=== PATIENT | male | born 1930 | race Caucasian/White ===

== ENCOUNTER 2017-04-06 18:11 | Inpatient (IN) | payer MEDICARE ==
[2017-04-06] MEDS ORDERED: Calcium Carbonate 500 MG ChewTAB PO PRN (19:54)
[2017-04-06] MEDS ORDERED: Ondansetron ODT 4 MG TAB PO PRN (19:54)
[2017-04-06] MEDS ORDERED: Loperamide HCl 2 MG CAP PO PRN (19:54)
[2017-04-06] MEDS ORDERED: PROVENTIL INHALER 6.7 G (200 INHALATIONS) INH PRN ×2 (20:49→21:32)
[2017-04-06] MEDS ORDERED: Refresh Lacri-lube Opth Oint 7 GM TUBE EA EYE PRN (20:49)
[2017-04-06] MEDS ORDERED: Fluticasone Propionate Nasal Spray 16 gm Bottle NASAL PRN (20:49)
[2017-04-06] MEDS ORDERED: Polyethylene Glycol 3350 17 GM Packet PO PRN (20:49)
[2017-04-06] MEDS: Carvedilol 6.25 MG TAB PO SCH (22:35)
[2017-04-06] MEDS: Donepezil HCl 10 MG TAB PO SCH (22:35)
[2017-04-06] MEDS: FLUOROMETHOLONE R EYE SCH (22:36)
[2017-04-06] MEDS: Latanoprost 0.005% Ophth Soln 2.5 ml Bottle L EYE SCH (22:36)
[2017-04-06] MEDS: Melatonin 3 MG TAB PO SCH (22:36)
[2017-04-06] MEDS: Vancomycin HCl 125 MG Capsule PO SCH (22:37)
[2017-04-07 00:20] LABS: Bilirubin Negative (Negative); Blood, Urine Large (Negative); Clarity Clear (Clear); Glucose, Urine (Dipstick) Negative (Negative); Leukocyte Trace (Negative); Nitrite Negative (Negative); Protein, Urine (Dipstick) 100 mg/dL (Neg-Trace); Specific Gravity, Urine 1.025 (1.005-1.030); Urobilinogen 0.2 mg/dL (0.2-1.0); pH, Urine 5.5 (5.0-9.0)
[2017-04-07 00:21] LABS: Bacteria/HPF Rare-Few HPF (None Seen); RBC/HPF 21-50 HPF (0-3); Squamous Epithelial 0-3 HPF (0-3)
--- NOTE | 2017-04-07 02:26 | HP ---
DATE OF ADMISSION: 04/06/2017 HISTORY OF PRESENT ILLNESS: Mr. Rivero is a very pleasant 87-year-old white male transferred from [facility] in [place] with multiple medical problems. He initially was admitted there with systolic heart failure, stage 4 kidney disease, and respiratory illness. He was negative for influenza, but had RSV. Unfortunately, he was found to have sudden asp iration was changed to chopped diet with nectar thickened liquids. Requires continued physical thera py. After 3 admissions in the past 3 months with pneumonia, he developed C. diff and was placed on v ancomycin 250 q.i.d., next 12 more days. At times, he is confused, but this evening, he is awake and alert and recognizes. He knows that he is at [facility] and he is here for physical therapy, occupational therapy, speech therapy, and to continue his C. diff treatment. PAST MEDICAL HISTORY: 1. Significant for multiple medical problems including systolic and diastolic heart failure. 2. Stage 4 kidney disease with creatinine in the force. 3. Atherosclerotic heart disease. 4. Chronic obstructive pulmonary disease. 5. BPH. 6. Coronary artery disease. 7. 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 8. Chronic combined systolic and diastolic heart failure. 9. Chronic respiratory failure with hypoxemia and oxygen at home. 10. Recent health care associated pneumonia. 11. RSV. 12. Hypertension 13. Restless leg syndrome. 14. Gastroesophageal reflux disease. 15. Hyperlipidemia. 16. Dysphagia. 17. Thrombocytopenia. 18. Chronic gout. 19. Prior coronary artery stent. 20. Tricuspid regurgitation. 21. Mitral regurgitation. 22. Aortic regurgitation. 23. Pulmonary valve regurgitation. 24. Left atrial enlargement. 25. Alzheimer's type dementia. 26. Bronchiectasis. 27. Metabolic encephalopathy. 28. Diverticulosis of the colon. 29. Periodic limb movement. 30. Erectile dysfunction. 31. Testicular hypofuntion. 32. Osteoarthritis. 33. History of peptic ulcer disease. 34. Former cigarette smoker. 35. Seborrheic dermatitis. 36. Rosacea. 37. Vitamin D deficiency. 38. Left bundle branch block. 39. Allergic rhinitis. 40. Generalized weakness. PAST SURGICAL HISTORY: Reveals: 1. Appendectomy. 2. Cholecystectomy. 3. Cardiac catheterization with stent. 4. Right hip replacement. 5. Right knee replacement. 6. Right shoulder replacement. 7. Hemorrhoidectomy. 8. Bilateral cataract surgery. 9. Partial distal claviculectomy. 10. Corneal transplant. FAMILY HISTORY: Reveals patient's father had coronary artery disease and hypertension. Patient had a brother and sister both with diabetes. Patient had a sister that of lung cancer at age 62. F amily history is positive for heart disease, hypertension, diabetes, and cancer. SOCIAL HISTORY: Reveals patient is . Patient stopped smoking in 1972. He states he smoked f or 38 years, 2 packs per day. Patient states he rarely has any alcohol or all, but is in the past elizondo d a glass of wine or a drink rarely. Patient is unable to exercise at this time. The patient is ret ired. REVIEW OF SYSTEMS: Reveal the patient, events of fatigue and malaise. Denies any fever, chills, or night sweats. He denies any pain at this time. His states he has decreased appetite. It is no phil that he has complaints of dry skin in the past. He states his vision is fair. He denies shortne ss of breath at this time, but he is lying in bed. Denies any chest pain or palpitations. He denies nausea, vomiting, indigestion, but he does have decreased appetite. States he does not have a lot o f arthralgias or pain at this time. Denies any anxiety, depression, or stress. Denies any nausea, v omiting, or diarrhea, or constipation. PHYSICAL EXAMINATION: GENERAL: This is a well-developed, well-nourished, slightly obese, very pleasant white male in no ap parent distress at this time. HEENT: Reveals normocephalic, nontraumatic cranium. Pupils are equally round and reactive. Extraoc ular movements intact. Nose and throat are dry, but clear. NECK: Supple, without masses, nodes, or bruits. CHEST: Clear to auscultation. Coarse breath sounds are noted with occasional cough. No rales, no r honchi are noted. Breath sounds are distant and shallow. HEART: Reveals a regular rate and rhythm with a 2/6 systolic ejection type murmur. ABDOMEN: Slightly obese, soft, nontender, without organomegaly. Normal bowel sounds are possibly sl ightly hyperactive bowel sounds are noted. No rebound or guarding is noted. : Reveals Penn catheter in place. EXTREMITIES: Reveal no clubbing, cyanosis with trace edema. MUSCULOSKELETAL: Reveals the patient presently in bed, not walking, but was told that he is very wea k. NEUROLOGIC: Patient is oriented to person, place, but not time. ASSESSMENT: 1. History of recent respiratory distress secondary to aspiration. 2. Dysphagia with silent aspiration. 3. History of Clostridium difficile, has received 2 days out of 14-day course of vancomycin 250 mg q .i.d. for any 12 more days. 4. Poor appetite. 5. Confusion. 6. Stage IV chronic renal insufficiency. The patient's spoke to the supplier quality engineering manager and they will not recommend going to dialysis. 7. Hypertension. 8. Systolic and diastolic heart failure. 9. Generalized weakness. 10. Benign prostatic hypertrophy. PLAN: 1. The patient will continue the vancomycin 250 mg 4 times a day for 12 more days. 2. The patient will be on a mechanical soft diet with chopped meats. He will have extra sauce. He will have nectar thickened liquids. 3. Continue to follow the patient's kidney function closely. 4. Continue to follow the patient signs and symptoms of congestive heart failure. 5. We will continue speech therapy. 6. We will continue physical therapy and occupational therapy. 7. Continue tamsulosin. 8. Continue present medications. 9. If the patient worsens, we will encourage hospice care.
[2017-04-07] MEDS: Ipratropium Bromide 2.5 ml Neb NEB SCH ×4 (05:38→23:29)
[2017-04-07 05:42] LABS: #Basophils 0.1 thou/uL (0.0-0.2); #Eosinphils 0.2 thou/uL (0.0-0.7); #Lymphocytes 1.2 thou/uL (1.20-3.40); #Monocytes 1.1 thou/uL (0.11-0.59); #Neutrophils 8.8 thou/uL (1.40-6.50); %Basophils 1.2 % (0.0-1.0); %Eosinophils 2.1 % (0.0-10.0); %Neutrophils 76.8 % (42.0-75.0); Hemoglobin 9.9 g/dL (14.0-18.0); Mean Corpuscular HGB CONC 30.7 g/dL (32.0-36.0); Mean Platelet Volume 7.8 fL (7.4-10.4); Platelet Count 258 thou/uL (130-400); RBC Distribution Width 16.7 % (11.5-14.5); White Blood Cell (WBC) Count 11.5 thou/uL (4.8-10.8)
[2017-04-07 06:02] LABS: ALT (SGPT) 53 U/L (8-55); AST (SGOT) 72 U/L (5-34); Albumin 2.6 g/dL (3.4-4.8); Alkaline Phosphatase 76 U/L (40-150); Anion Gap 14 mmol/L (10-20); BUN (Urea Nitrogen) 80 mg/dL (8.4-25.7); Bilirubin, Total 0.2 mg/dL (0.2-1.2); Calc. Creatinine Clearance 12 mL/min (70-130); Calcium 8.6 mg/dL (7.8-10.44); Carbon Dioxide 28 mmol/L (23-31); Chloride 112 mmol/L (98-107); Estimated GFR-MDRD 13; Globulin 2.4 g/dL (2.4-3.5); Glucose 91 mg/dL (83-110); Potassium 4.2 mmol/L (3.5-5.1); Sodium 150 mmol/L (136-145)
[2017-04-07] MEDS: Atorvastatin Calcium 40 MG TAB PO SCH (09:24)
[2017-04-07] MEDS: Vancomycin HCl 125 MG Capsule PO SCH ×4 (09:24→19:59)
[2017-04-07] MEDS: Fish Oil 1,000 MG CAP PO SCH ×2 (09:24→09:40)
[2017-04-07] MEDS: Ferrous Sulfate 325 MG TAB PO SCH (09:24)
[2017-04-07] MEDS: Metamucil PACK PO SCH (09:25)
[2017-04-07] MEDS: Carvedilol 6.25 MG TAB PO SCH ×2 (09:25→19:58)
[2017-04-07] MEDS: Multivitamin W/ Minerals 1 TAB PO SCH (09:25)
[2017-04-07] MEDS: LACTOBACILLUS RHAMNOSUS GG PO SCH (09:29)
[2017-04-07] MEDS: GLUCOSAMINE HCL 1500 MG PO SCH (09:29)
[2017-04-07] MEDS: FLAXSEED OIL 1000 MG PO SCH (09:30)
[2017-04-07] MEDS: FLUOROMETHOLONE R EYE SCH ×2 (09:30→20:00)
[2017-04-07] MEDS ORDERED: cloNIDine 0.1 MG TAB PO PRN (09:33)
[2017-04-07] MEDS: Alfuzosin 10 MG TABDR...ER PO SCH (12:41)
[2017-04-07] MEDS: Donepezil HCl 10 MG TAB PO SCH (19:58)
[2017-04-07] MEDS: Melatonin 3 MG TAB PO SCH (19:58)
[2017-04-07] MEDS: Latanoprost 0.005% Ophth Soln 2.5 ml Bottle L EYE SCH (19:59)
--- NOTE | 2017-04-07 22:19 | PRG ---
DATE OF SERVICE: 04/07/2017 HISTORY OF PRESENT ILLNESS: Mr. Rivero is a very pleasant 87-year-old white male transferred from [facility] with multiple medical problems including acute systolic heart failure, stage 4 kidney disease, acute respiratory failure, RSV, COPD, and anemia. The patient was transferred to [facility] for continued physical therapy and occupati onal therapy to increase his strength and stamina. The patient has been seen by Palliative Care and the patient does poorly, we will revert to hospice care. SUBJECTIVE: The patient is awake and states he ate fairly well this morning although his states he only ate 1-2 bites. He is presently sitting in a chair, states he feels well and is getting read y to start and be evaluated with PT and OT. OBJECTIVE: VITAL SIGNS: This morning reveal blood pressure slightly elevated at 181/78, repeat was 159/76. Pul se 71, respirations 20, O2 sat is 99% on 2 liters nasal cannula. T-max is 96.5. GENERAL: This is a well-developed and well-nourished, actually better looking than his lab indicates , white male, in no apparent distress at this time. HEENT: Reveals normocephalic and nontraumatic cranium. Pupils are equally round and reactive. Extr aocular movements are intact. Nose and throat are dry, but clear. NECK: Supple without masses, nodes, or bruits. CHEST: Clear to auscultation. The patient does have some coarse breath sounds, but he has no rales. He has no rhonchi. He has no wheezes. HEART: Reveals a regular rate and rhythm, a 2/6 systolic ejection murmur is noted. ABDOMEN: Slightly obese. Soft and nontender without organomegaly. Normal bowel sounds are noted. No rebound or guarding is noted. GENITOURINARY: Reveals Penn catheter still in place. EXTREMITIES: Reveal no clubbing, cyanosis, or edema. MUSCULOSKELETAL: The patient is weak, presently sitting in wheelchair, seems to be doing well. NEUROLOGIC: He is oriented to person and place, but not time. LABORATORY DATA: This morning revealed a white count 11,000, hemoglobin 9.9, hematocrit 32.3 and a p latelet count of 258,000. Chemistry this morning reveals sodium slightly elevated at 150, potassium 4.2, chloride 112, carbon dioxide 28 with a BUN of 80 and a creatinine 4.41 which is about his normal . GFR is 13. We have already discussed with the branch manager that they did not want dialysis. AST elevated at 72 and ALT is 73. ASSESSMENT: 1. Recent respiratory failure secondary to aspiration. 2. Dysphagia with silent aspiration. 3. History of Clostridium difficile, presently on day #3 of a 14-day course of vancomycin 250 q.i.d. 4. Poor appetite. 5. Confusion. 6. Stage 4 chronic renal insufficiency and the family denies dialysis. 7. Hypertension. 8. Systolic and diastolic congestive heart failure. 9. Generalized weakness. 10. Benign prostatic hyperplasia. PLAN: 1. Monitor the patient's respiratory status. 2. Vancomycin 250 mg 4 times a day for 11 more days. 3. Mechanical soft diet with chopped meats, extra sauce, and nectar thickened liquids, but the patie nt will have speech therapy evaluation today. 4. Monitor the patient's kidney function. 5. Follow the patient for signs and symptoms of congestive heart failure. 6. Continue speech therapy. 7. Continue physical therapy and occupational therapy. 8. Continue present medications. 9. If the patient worsens, we will encourage hospice care.
[2017-04-08] MEDS: Ferrous Sulfate 325 MG TAB PO SCH (08:37)
[2017-04-08] MEDS: Metamucil PACK PO SCH (08:38)
[2017-04-08] MEDS: Vancomycin HCl 125 MG Capsule PO SCH ×4 (08:38→20:47)
[2017-04-08] MEDS: Carvedilol 6.25 MG TAB PO SCH ×2 (08:38→20:46)
[2017-04-08] MEDS: Atorvastatin Calcium 40 MG TAB PO SCH (08:38)
[2017-04-08] MEDS: Fish Oil 1,000 MG CAP PO SCH (08:38)
[2017-04-08] MEDS: Multivitamin W/ Minerals 1 TAB PO SCH (08:38)
[2017-04-08] MEDS: FLAXSEED OIL 1000 MG PO SCH (08:42)
[2017-04-08] MEDS: FLUOROMETHOLONE R EYE SCH ×2 (08:42→20:47)
[2017-04-08] MEDS: GLUCOSAMINE HCL 1500 MG PO SCH (08:42)
[2017-04-08] MEDS: LACTOBACILLUS RHAMNOSUS GG PO SCH (08:43)
[2017-04-08] MEDS ORDERED: Acetaminophen 325 MG TAB PO PRN (09:35)
[2017-04-08] MEDS: Gabapentin 300 MG CAP PO SCH ×2 (09:40→20:46)
[2017-04-08] MEDS: Ipratropium Bromide 2.5 ml Neb NEB SCH ×4 (10:44→23:27)
[2017-04-08] MEDS: Alfuzosin 10 MG TABDR...ER PO SCH (10:47)
--- NOTE | 2017-04-08 14:20 | PRG ---
DATE OF SERVICE: 04/08/2017 HISTORY OF PRESENT ILLNESS: Mr. Rivero is a very pleasant 87-year-old white male transferred from [facility] with acute on chronic systolic heart failure, stage 4 kidney disease, acute r espiratory failure, RSV, COPD, and anemia. The patient was transferred here for physical therapy and occupational therapy to increase his stamina. He was also seen by palliative care before he left ov er there. If he does poorly, we will restart or reconsider hospice care. SUBJECTIVE: The patient is in a good mood this morning. He is eating very poorly, he only ate 5% of breakfast this morning. The patient was seen with physical therapy and walked 77 feet this morning. OBJECTIVE: VITAL SIGNS: Reveal blood pressure this morning is 150/80, pulse 73-87, respirations 17-20, O2 sat 9 7%-100% on 2 liters, T-max 98.9. GENERAL: This is a well-developed, well-nourished, white male, in no apparent distress at this time. HEENT: Reveals normocephalic, nontraumatic cranium. Pupils are equally round and reactive. Extraoc ular movements intact. Nose and throat are slightly dry. NECK: Supple, without mass, nodes or bruits. CHEST: Clear to auscultation, no rales, rhonchi, wheezes or cough is heard. CARDIOVASCULAR: Reveals a regular rate and rhythm. Patient does have a 2/6 systolic ejection murmur noted. ABDOMEN: Slightly obese, soft, nontender, without organomegaly. Normal bowel sounds are noted in al l 4 quadrants. No rebound or guarding is noted. GENITOURINARY: Reveals Penn catheter in place. EXTREMITIES: Reveal no clubbing, cyanosis or edema. MUSCULOSKELETAL: The patient has significant weakness, but he did walk 77 feet this morning. NEUROLOGIC: He is oriented to person, place, but not time. ASSESSMENT: 1. Recent respiratory failure secondary to aspiration. 2. Dysphagia with silent aspiration. 3. History of Clostridium difficile, presently on day #04 of 14-day course of vancomycin 250 q.i.d. 4. Poor appetite. 5. Confusion. 6. Stage IV chronic renal insufficiency with a creatinine of 4.4. 7. The patient does not want the patient to have any dialysis. 8. Hypertension. 9. Systolic and diastolic congestive heart failure, stable. 10. Generalized weakness. 11. Benign prostatic hypertrophy. PLAN: 1. Continue to monitor the patient's respiratory status. 2. Continue vancomycin 250 orally q.i.d. for 10 more days. 3. Mechanical soft diet with chopped meats, extra sauces and nectar thickened liquids. 4. Monitor the patient's kidney function. 5. Follow the patient for signs and symptoms of congestive heart failure. 6. Continue speech therapy. 7. Continue physical therapy and occupational therapy. 8. We will continue the following case if the patient needs hospice care.
[2017-04-08] MEDS: Melatonin 3 MG TAB PO SCH (20:47)
[2017-04-08] MEDS: Donepezil HCl 10 MG TAB PO SCH (20:47)
[2017-04-08] MEDS: Latanoprost 0.005% Ophth Soln 2.5 ml Bottle L EYE SCH (20:51)
[2017-04-09] MEDS: Ipratropium Bromide 2.5 ml Neb NEB SCH ×3 (05:29→17:14)
[2017-04-09] MEDS: Fish Oil 1,000 MG CAP PO SCH (08:45)
[2017-04-09] MEDS: Vancomycin HCl 125 MG Capsule PO SCH ×4 (08:45→21:08)
[2017-04-09] MEDS: Atorvastatin Calcium 40 MG TAB PO SCH (08:46)
[2017-04-09] MEDS: Ferrous Sulfate 325 MG TAB PO SCH (08:46)
[2017-04-09] MEDS: Alfuzosin 10 MG TABDR...ER PO SCH (08:46)
[2017-04-09] MEDS: Carvedilol 6.25 MG TAB PO SCH ×2 (08:46→21:07)
[2017-04-09] MEDS: Multivitamin W/ Minerals 1 TAB PO SCH (08:46)
[2017-04-09] MEDS: Gabapentin 300 MG CAP PO SCH ×2 (08:46→21:08)
--- NOTE | 2017-04-09 10:09 | PRG ---
DATE OF SERVICE: 04/09/2017 SUBJECTIVE: Mr. Rivero is resting in bed. His spouse is in the room. He denies any concerns. H e apparently had 2 liquid stools so far. states that it is slowing down considerably. OBJECTIVE: VITAL SIGNS: He is afebrile, heart rate 68, respirations 20, oxygen saturation 100%, blood pressure is elevated at 188/82. CARDIOVASCULAR SYSTEM: S1, S2 plus. RESPIRATORY SYSTEM: Normal vesicular breath sounds. ABDOMEN: Soft, nontender, bowel sounds heard in all quadrants. EXTREMITIES: Trace edema. CENTRAL NERVOUS SYSTEM: Generalized weakness. IMPRESSION: 1. Resolving Clostridium difficile colitis. 2. Hypernatremia. 3. Chronic kidney disease, stage 4-5. 4. Hypertension, not well controlled and improving acute on chronic systolic congestive heart failur e. PLAN: 1. Add amlodipine 5 mg at night. 2. Continue vancomycin. 3. Recheck laboratory values to monitor sodium. 4. Monitor cardiovascular status. 5. Physical therapy. 6. Nutritional support. 7. Aspiration precautions. He is on a mechanically soft diet with nectar-thickened liquids, discuss ed with the in detail, and all questions answered. Nursing had some questions regarding his eye drops and his flaxseed oil. It has been ordered as home medications. We will clarify that with eugene arias.
[2017-04-09] MEDS: GLUCOSAMINE HCL 1500 MG PO SCH (10:20)
[2017-04-09] MEDS: LACTOBACILLUS RHAMNOSUS GG PO SCH (10:20)
[2017-04-09] MEDS: FLAXSEED OIL 1000 MG PO SCH (10:21)
[2017-04-09] MEDS: FLUOROMETHOLONE R EYE SCH ×3 (10:21→21:29)
[2017-04-09] MEDS: Metamucil PACK PO SCH (10:22)
[2017-04-09] MEDS: Melatonin 3 MG TAB PO SCH (21:07)
[2017-04-09] MEDS: Latanoprost 0.005% Ophth Soln 2.5 ml Bottle L EYE SCH (21:08)
[2017-04-09] MEDS: Donepezil HCl 10 MG TAB PO SCH (21:08)
[2017-04-10] MEDS: Ipratropium Bromide 2.5 ml Neb NEB SCH ×4 (00:14→17:41)
[2017-04-10 06:12] LABS: Anion Gap 14 mmol/L (10-20); BUN (Urea Nitrogen) 68 mg/dL (8.4-25.7); Calc. Creatinine Clearance 17 mL/min (70-130); Calcium 8.7 mg/dL (7.8-10.44); Carbon Dioxide 27 mmol/L (23-31); Chloride 113 mmol/L (98-107); Estimated GFR-MDRD 19; Glucose 121 mg/dL (83-110); Potassium 4.2 mmol/L (3.5-5.1); Sodium 150 mmol/L (136-145)
[2017-04-10 06:52] LABS: #Basophils 0.1 thou/uL (0.0-0.2); #Eosinphils 0.2 thou/uL (0.0-0.7); #Lymphocytes 1.4 thou/uL (1.20-3.40); #Monocytes 0.9 thou/uL (0.11-0.59); #Neutrophils 10.4 thou/uL (1.40-6.50); %Eosinophils 1.9 % (0.0-10.0); %Lymphocytes 10.5 % (21.0-51.0); %Monocytes 7.1 % (0.0-10.0); %Neutrophils 79.6 % (42.0-75.0); Band 21 % (5-11); Hemoglobin 9.1 g/dL (14.0-18.0); Hypochromia MODERATE=16-30 cells (100X) (0-5/hpf); Lymphocytes 14 % (21-51); MDiff Complete? YES; Macrocytosis SLIGHT = 6-15 cells (100X) (0-5/hpf); Mean Corpuscular Hemoglobin 31.5 pg (27.0-31.0); Mean Platelet Volume 7.3 fL (7.4-10.4); Monocytes 1 % (0-10); Neutrophil 64 % (42-75); PLT Morphology Comment Appears Adequate; Platelet Count 216 thou/uL (130-400); RBC Distribution Width 16.7 % (11.5-14.5); Red Blood Cell (RBC) Count 2.89 mill/uL (4.70-6.10)
[2017-04-10] MEDS: FLAXSEED OIL 1000 MG PO SCH (09:06)
[2017-04-10] MEDS: Ferrous Sulfate 325 MG TAB PO SCH (09:07)
[2017-04-10] MEDS: GLUCOSAMINE HCL 1500 MG PO SCH (09:07)
[2017-04-10] MEDS: Gabapentin 300 MG CAP PO SCH ×2 (09:07→21:08)
[2017-04-10] MEDS: Atorvastatin Calcium 40 MG TAB PO SCH (09:07)
[2017-04-10] MEDS: Multivitamin W/ Minerals 1 TAB PO SCH (09:08)
[2017-04-10] MEDS: FLUOROMETHOLONE R EYE SCH ×2 (09:08→21:00)
[2017-04-10] MEDS: Alfuzosin 10 MG TABDR...ER PO SCH (09:08)
[2017-04-10] MEDS: Carvedilol 6.25 MG TAB PO SCH ×2 (09:08→21:08)
[2017-04-10] MEDS: Vancomycin HCl 125 MG Capsule PO SCH ×4 (09:08→21:07)
[2017-04-10] MEDS: Fish Oil 1,000 MG CAP PO SCH (09:08)
[2017-04-10] MEDS: Metamucil PACK PO SCH (09:10)
[2017-04-10] MEDS: Guaifenesin DM 100-10/5 ML UDCUP PO PRN (15:14)
--- NOTE | 2017-04-10 16:41 | PRG ---
DATE OF SERVICE: 04/10/2017 SUBJECTIVE: Mr. Rivero had just 1 episode of loose stool according to his . He is drinking h is Ensure. He drinks about half a bottle of water a day. He is really not eating anything. Discuss ed with her and explained to her how important it is for him to eat to get better. She also stated t hat his wishes are to be a DNR. OBJECTIVE: VITAL SIGNS: He is afebrile, heart rate 65, respirations 17, oxygen saturation 99% on 2 liters, bloo d pressure 161/72. CARDIOVASCULAR SYSTEM: S1 and S2 plus. RESPIRATORY SYSTEM: Normal vesicular breath sounds. ABDOMEN: Soft, nontender, bowel sounds heard in all quadrants. EXTREMITIES: Without cyanosis or clubbing. LABORATORY VALUES: White count is 13, H and H is 9.1 and 29.4, white count was 11.5 two days ago. S odium still high at 150, potassium 4.2, BUN and creatinine 68 and 3.15. IMPRESSION: 1. Hypernatremia. 2. Chronic kidney disease. 3. Clostridium difficile colitis, improving. 4. Decreased p.o. intake. 5. Dysphagia on a mechanically soft diet and aspiration precautions. 6. Hypertension, improving. PLAN: 1. Start D5 water at 75 mL an hour. 2. Change him to DNR. 3. Encourage p.o. intake. 4. Change amlodipine to 10 mg at night. 5. DVT and stress ulcer prophylaxis. 6. Decubitus precautions. 7. Discussed with patient and in detail and all questions answered.
[2017-04-10] MEDS: Dextrose 5% in Water 1,000 ML IV SCH (17:38)
[2017-04-10] MEDS ORDERED: Amlodipine 5 MG TAB PO SCH (21:00)
[2017-04-10] MEDS: Donepezil HCl 10 MG TAB PO SCH (21:08)
[2017-04-10] MEDS: Latanoprost 0.005% Ophth Soln 2.5 ml Bottle L EYE SCH (21:09)
[2017-04-10] MEDS: Melatonin 3 MG TAB PO SCH (21:09)
[2017-04-11] MEDS: Ipratropium Bromide 2.5 ml Neb NEB SCH ×4 (00:16→17:30)
[2017-04-11 05:59] LABS: #Basophils 0.1 thou/uL (0.0-0.2); #Eosinphils 0.2 thou/uL (0.0-0.7); #Lymphocytes 1.4 thou/uL (1.20-3.40); #Monocytes 0.9 thou/uL (0.11-0.59); #Neutrophils 9.9 thou/uL (1.40-6.50); %Basophils 0.6 % (0.0-1.0); %Eosinophils 1.8 % (0.0-10.0); %Monocytes 7.5 % (0.0-10.0); %Neutrophils 79.1 % (42.0-75.0); Hemoglobin 8.9 g/dL (14.0-18.0); Mean Corpuscular HGB CONC 30.6 g/dL (32.0-36.0); Mean Platelet Volume 7.7 fL (7.4-10.4); Platelet Count 220 thou/uL (130-400); RBC Distribution Width 16.8 % (11.5-14.5); Red Blood Cell (RBC) Count 2.88 mill/uL (4.70-6.10); White Blood Cell (WBC) Count 12.5 thou/uL (4.8-10.8)
[2017-04-11 06:03] LABS: Anion Gap 11 mmol/L (10-20); BUN (Urea Nitrogen) 65 mg/dL (8.4-25.7); Calc. Creatinine Clearance 19 mL/min (70-130); Calcium 8.6 mg/dL (7.8-10.44); Carbon Dioxide 32 mmol/L (23-31); Chloride 109 mmol/L (98-107); Estimated GFR-MDRD 21; Glucose 117 mg/dL (83-110); Potassium 4.1 mmol/L (3.5-5.1); Sodium 148 mmol/L (136-145)
[2017-04-11] MEDS: Dextrose 5% in Water 1,000 ML IV SCH ×2 (06:52→17:30)
[2017-04-11] MEDS: Guaifenesin DM 100-10/5 ML UDCUP PO PRN (10:42)
[2017-04-11] MEDS: Vancomycin HCl 125 MG Capsule PO SCH ×4 (10:44→21:16)
[2017-04-11] MEDS: Ferrous Sulfate 325 MG TAB PO SCH (10:44)
[2017-04-11] MEDS: Gabapentin 300 MG CAP PO SCH ×2 (10:45→21:16)
[2017-04-11] MEDS: Fish Oil 1,000 MG CAP PO SCH (10:45)
[2017-04-11] MEDS: Carvedilol 6.25 MG TAB PO SCH ×2 (10:45→21:17)
[2017-04-11] MEDS: Atorvastatin Calcium 40 MG TAB PO SCH (10:47)
[2017-04-11] MEDS: Multivitamin W/ Minerals 1 TAB PO SCH (10:47)
[2017-04-11] MEDS: GLUCOSAMINE HCL 1500 MG PO SCH (10:48)
[2017-04-11] MEDS: FLUOROMETHOLONE R EYE SCH ×2 (10:50→21:20)
[2017-04-11] MEDS: FLAXSEED OIL 1000 MG PO SCH (10:51)
[2017-04-11] MEDS: Metamucil PACK PO SCH (10:57)
[2017-04-11] MEDS ORDERED: Sodium Chloride 0.9% 10 ML ONE (11:05)
--- NOTE | 2017-04-11 11:24 | PRG ---
DATE OF SERVICE: 04/11/2017 SUBJECTIVE: Mr. Rivero is doing better. His IV did infiltrate, so currently he does not have an IV going, but his sodium is down. His bowel movements are much improved according to his spouse. He is still not eating well. OBJECTIVE: VITAL SIGNS: He is afebrile, heart rate 74, respirations 20, oxygen saturation 97%, blood pressure 1 62/70. CARDIOVASCULAR SYSTEM: S1, S2 plus. RESPIRATORY SYSTEM: Normal vesicular breath sounds. ABDOMEN: Soft, obese, nontender, bowel sounds heard in all quadrants. EXTREMITIES: Without cyanosis or clubbing. Trace edema. CENTRAL NERVOUS SYSTEM: Generalized weakness. LABORATORY VALUES: White count is down to 12.5, hemoglobin and hematocrit is 8.9 and 29.2. Chemistr y shows sodium down to 148, BUN and creatinine 65 and 2.88. IMPRESSION: 1. Hypernatremia and dehydration. 2. Resolving Clostridium difficile colitis. 3. Hypertension. 4. Chronic kidney disease. 5. Dysphagia, decreased p.o. intake. PLAN: 1. Adjust blood pressure medications. 2. Resume IV fluids. Nursing is going to restart his IV. 3. Encourage p.o. intake. 4. Continue vancomycin until course is done. 5. DVT and stress ulcer prophylaxis. 6. Routine laboratory values. 7. Dr. Daren Jaime back tonight.
[2017-04-11] MEDS: Alfuzosin 10 MG TABDR...ER PO SCH (11:48)
[2017-04-11] MEDS: Amlodipine 5 MG TAB PO SCH (21:17)
[2017-04-11] MEDS: Latanoprost 0.005% Ophth Soln 2.5 ml Bottle L EYE SCH (21:17)
[2017-04-11] MEDS: Donepezil HCl 10 MG TAB PO SCH (21:17)
[2017-04-11] MEDS: Melatonin 3 MG TAB PO SCH (21:20)
[2017-04-12] MEDS: Ipratropium Bromide 2.5 ml Neb NEB SCH ×5 (00:40→23:53)
[2017-04-12 05:55] LABS: #Basophils 0.1 thou/uL (0.0-0.2); #Eosinphils 0.2 thou/uL (0.0-0.7); #Lymphocytes 1.1 thou/uL (1.20-3.40); #Monocytes 0.8 thou/uL (0.11-0.59); #Neutrophils 9.8 thou/uL (1.40-6.50); %Basophils 0.9 % (0.0-1.0); %Eosinophils 1.7 % (0.0-10.0); %Lymphocytes 9.4 % (21.0-51.0); %Monocytes 6.3 % (0.0-10.0); %Neutrophils 81.7 % (42.0-75.0); Hemoglobin 8.5 g/dL (14.0-18.0); Mean Corpuscular HGB CONC 30.9 g/dL (32.0-36.0); Mean Corpuscular Hemoglobin 31.5 pg (27.0-31.0); Mean Platelet Volume 7.7 fL (7.4-10.4); Platelet Count 211 thou/uL (130-400); RBC Distribution Width 16.8 % (11.5-14.5); Red Blood Cell (RBC) Count 2.71 mill/uL (4.70-6.10)
[2017-04-12 06:04] LABS: Anion Gap 10 mmol/L (10-20); BUN (Urea Nitrogen) 61 mg/dL (8.4-25.7); Calc. Creatinine Clearance 19 mL/min (70-130); Calcium 8.6 mg/dL (7.8-10.44); Carbon Dioxide 31 mmol/L (23-31); Chloride 107 mmol/L (98-107); Estimated GFR-MDRD 21; Glucose 125 mg/dL (83-110); Potassium 4.3 mmol/L (3.5-5.1); Sodium 144 mmol/L (136-145)
[2017-04-12] MEDS: FLAXSEED OIL 1000 MG PO SCH (08:31)
[2017-04-12] MEDS: GLUCOSAMINE HCL 1500 MG PO SCH (08:31)
[2017-04-12] MEDS: Ferrous Sulfate 325 MG TAB PO SCH (08:32)
[2017-04-12] MEDS: Atorvastatin Calcium 40 MG TAB PO SCH (08:32)
[2017-04-12] MEDS: Multivitamin W/ Minerals 1 TAB PO SCH (08:32)
[2017-04-12] MEDS: Carvedilol 6.25 MG TAB PO SCH ×2 (08:32→20:57)
[2017-04-12] MEDS: FLUOROMETHOLONE R EYE SCH ×2 (08:32→20:59)
[2017-04-12] MEDS: Alfuzosin 10 MG TABDR...ER PO SCH (08:32)
[2017-04-12] MEDS: Fish Oil 1,000 MG CAP PO SCH (08:33)
[2017-04-12] MEDS: Dextrose 5% in Water 1,000 ML IV SCH (08:33)
[2017-04-12] MEDS: Gabapentin 300 MG CAP PO SCH ×2 (08:33→20:57)
[2017-04-12] MEDS: Vancomycin HCl 125 MG Capsule PO SCH ×4 (08:33→20:56)
[2017-04-12] MEDS: Metamucil PACK PO SCH (08:36)
--- NOTE | 2017-04-12 17:59 | PRG ---
DATE OF SERVICE: 04/12/2017 SUBJECTIVE: Mr. Rivero is a very pleasant 87-year-old white male transferred from [facility] acute on chronic systolic heart failure, stage 4 kidney disease, acute respiratory failure, RSV, COPD, and anemia. The patient was transferred here for physical therapy, occupational therapy to inc rease his stamina. He also was seen by Palliative Care and he feels poorly, we consider hospice. The patient has actually been doing fairly well. He walked on the 46-75 feet. His creatinine i s down to 2.81 with a GFR up to 21. His white count 12,000. His H&H is 8.5 and 27.6. He actually s eems to be doing fairly well. He has difficulty with dementia and following orders, but other than t hat he is participating as best he can. Dr. Reynolds to start him on an IV D5W over the weekend because he stopped drinking, but I told him we would need to stop that he needs to drink on his own. He sta tessy he has no complaints today. OBJECTIVE: VITAL SIGNS: Blood pressure 146/66, pulse 72-83, respirations 18, O2 sat 96% on 2 liters nasal cannu la, temperature max 97.9. GENERAL: This is a well-developed, well-nourished, pleasant white male with dementia. HEENT: Reveals normocephalic, nontraumatic cranium. Pupils are equally round and reactive. Extraoc ular movements intact. Nose and throat are clear and moist today. NECK: Supple without masses, nodes or bruits. LUNGS: Chest is clear to auscultation. No rales, rhonchi, wheezes or cough is heard. CARDIOVASCULAR: Reveals a regular rate and rhythm. The patient does have a 2/6 systolic ejection mu rmur. ABDOMEN: Soft and nontender without organomegaly. Normal bowel sounds are noted in all 4 quadrants. No rebound or guarding is noted. GENITOURINARY: Reveals Penn catheter still in place. EXTREMITIES: Reveal no clubbing, cyanosis or edema. The patient has significant weakness. He did w alk 46 feet and then 75 feet. NEUROLOGIC: He is oriented to person, but not place or time. IMPRESSION: 1. Respiratory failure secondary to aspiration. 2. Dysphagia with silent aspiration. 3. History of C. difficile presently on day 8 of 14 days of vancomycin q.i.d. 4. Poor appetite. 5. Dementia with confusion. 6. Stage IV chronic renal insufficiency with a creatinine down to 2.81. 7. The patient's family does not want dialysis. 8. Hypertension. 9. Systolic and diastolic congestive heart failure, stable. 10. Generalized weakness. 11. Benign prosthetic hypertrophy. PLAN: 1. Continue him on respiratory status. 2. Continue vancomycin 250 q.i.d. for 6 more days. 3. Continue mechanical soft diet with chopped meats extra sauces and nectar thickened liquids. 4. Monitor the patient's kidney function. 5. Follow the symptoms of congestive heart failure. 6. Continue speech therapy. 7. Continue physical therapy. 8. Continue occupational therapy. 9. Follow the patient if he deteriorates, will consult hospice.
[2017-04-12] MEDS: Amlodipine 5 MG TAB PO SCH (20:56)
[2017-04-12] MEDS: Donepezil HCl 10 MG TAB PO SCH (20:57)
[2017-04-12] MEDS: Melatonin 3 MG TAB PO SCH (20:57)
[2017-04-12] MEDS: Latanoprost 0.005% Ophth Soln 2.5 ml Bottle L EYE SCH (20:59)
[2017-04-13] MEDS: Ipratropium Bromide 2.5 ml Neb NEB SCH ×3 (06:00→17:10)
[2017-04-13] MEDS: FLAXSEED OIL 1000 MG PO SCH (08:48)
[2017-04-13] MEDS: Vancomycin HCl 125 MG Capsule PO SCH (08:48)
[2017-04-13] MEDS: Gabapentin 300 MG CAP PO SCH ×2 (08:48→21:33)
[2017-04-13] MEDS: GLUCOSAMINE HCL 1500 MG PO SCH (08:48)
[2017-04-13] MEDS: Fish Oil 1,000 MG CAP PO SCH (08:48)
[2017-04-13] MEDS: Alfuzosin 10 MG TABDR...ER PO SCH (08:49)
[2017-04-13] MEDS: Carvedilol 6.25 MG TAB PO SCH ×2 (08:49→21:33)
[2017-04-13] MEDS: Ferrous Sulfate 325 MG TAB PO SCH (08:49)
[2017-04-13] MEDS: Atorvastatin Calcium 40 MG TAB PO SCH (08:49)
[2017-04-13] MEDS: Multivitamin W/ Minerals 1 TAB PO SCH (08:50)
[2017-04-13] MEDS: FLUOROMETHOLONE R EYE SCH ×2 (08:51→21:09)
[2017-04-13] MEDS: Guaifenesin DM 100-10/5 ML UDCUP PO PRN (08:54)
[2017-04-13] MEDS: Metamucil PACK PO SCH (08:56)
[2017-04-13] MEDS: Vancomycin HCl 25 MG/ML Oral PO SCH ×3 (13:09→21:10)
--- NOTE | 2017-04-13 20:04 | PRG ---
DATE OF PROGRESS NOTE: 04/13/2017 DATE OF ADMISSION: 04/06/2017 HISTORY: Mr. Rivero is a very pleasant 87-year-old white male that was initially admitted to [facility] with chronic systolic heart failure, stage 4 kidney disease, acute respiratory f ailure, RSV, COPD, and anemia. The patient was stabilized, but was seen by palliative care before he was discharged. The patient was transferred here for physical therapy, occupational therapy to increase his strength and stamina. He actually is walking a little bit, but is very poor oral intake. SUBJECTIVE: The patient has no complaints. His says he is seem to be doing better where we enc ouraging him to eat better. OBJECTIVE: VITAL SIGNS: Reveal blood pressure this morning was 159/74, pulse 81 to 82, respirations 16 to 20, O 2 sat 97% on 2 liters nasal cannula. T-max 98.1. GENERAL: This is a well-developed, well-nourished, pleasant confused and slightly demented white mal e in no apparent distress at this time. HEENT: Reveals normocephalic, nontraumatic cranium. Pupils are equal, round, and reactive. Extraoc ular movements intact. Nose and throat are dry. NECK: Supple, without mass, nodes or bruits. LUNGS: Chest clear to auscultation. No rales, rhonchi, wheezes, or cough is heard. CARDIOVASCULAR: Reveals a regular rate and rhythm without gallops or rubs. Patient does have a 2/6 systolic ejection murmur. ABDOMEN: Soft, nontender, without organomegaly. Normal bowel sounds noted all 4 quadrants. No rebo und or guarding is noted. : Deferred. Penn catheter still in place. EXTREMITIES: Reveal no clubbing, cyanosis, or edema. Patient has been walking 30 to 70 feet. NEUROLOGIC: The patient is oriented to person, but not place or time. IMPRESSION: 1. Respiratory failure secondary to aspiration, much improved. 2. Dysphagia with silent aspiration. 3. History of Clostridium difficile presently on day 9 of a 14 days of vancomycin q.i.d. 4. Poor appetite. 5. Dementia with confusion. 6. Stage IV chronic renal insufficiency with creatinine down to 2.8 which is much improved. 7. Family does not want dialysis. 8. Hypertension. 9. Systolic and diastolic congestive heart failure, stable. 10. Generalized weakness. 11. BPH. PLAN: 1. Continue vancomycin 250 q.i.d. for 5 more days. 2. Continue mechanical soft diet with chopped meats extra sauces and nectar thickened liquids. 3. Continue to monitor the patient's kidney function. 4. We will follow the patient for signs and symptoms of congestive heart failure. 5. Continue speech therapy. 6. Continue physical therapy. 7. Continue occupational therapy. 8. The patient continues deteriorates, we will consult hospice care.
[2017-04-13] MEDS: Latanoprost 0.005% Ophth Soln 2.5 ml Bottle L EYE SCH (21:08)
[2017-04-13] MEDS: Melatonin 3 MG TAB PO SCH (21:09)
[2017-04-13] MEDS: Amlodipine 5 MG TAB PO SCH (21:32)
[2017-04-13] MEDS: Donepezil HCl 10 MG TAB PO SCH (21:33)
[2017-04-14] MEDS: Ipratropium Bromide 2.5 ml Neb NEB SCH ×4 (00:41→17:25)
[2017-04-14] MEDS: Ferrous Sulfate 325 MG TAB PO SCH (08:25)
[2017-04-14] MEDS: Fish Oil 1,000 MG CAP PO SCH (08:25)
[2017-04-14] MEDS: Carvedilol 6.25 MG TAB PO SCH ×2 (08:25→20:56)
[2017-04-14] MEDS: Multivitamin W/ Minerals 1 TAB PO SCH (08:26)
[2017-04-14] MEDS: Atorvastatin Calcium 40 MG TAB PO SCH (08:26)
[2017-04-14] MEDS: Gabapentin 300 MG CAP PO SCH ×2 (08:26→20:57)
[2017-04-14] MEDS: Alfuzosin 10 MG TABDR...ER PO SCH (08:26)
[2017-04-14] MEDS: Vancomycin HCl 25 MG/ML Oral PO SCH ×5 (08:27→22:30)
[2017-04-14] MEDS: Metamucil PACK PO SCH (08:27)
[2017-04-14] MEDS: GLUCOSAMINE HCL 1500 MG PO SCH (08:32)
[2017-04-14] MEDS: FLAXSEED OIL 1000 MG PO SCH (08:33)
[2017-04-14] MEDS: FLUOROMETHOLONE R EYE SCH ×2 (08:34→20:58)
--- NOTE | 2017-04-14 15:32 | PRG ---
DATE OF ADMISSION: 04/06/2017 DATE OF PROGRESS NOTE: 04/14/2017 Mr. Rivero is a very pleasant 87-year-old white male that was admitted to [facility] w ith shortness of breath secondary to chronic systolic heart failure, stage IV kidney disease, acute r espiratory failure, RSV, COPD, and anemia. Patient was eventually stabilized and seen by Palliative Care and was transferred to [facility] because his wanted him to get a little st ronger before she brought him home. Patient is actually doing much better. He began to eat better. He is walking better, getting strong er. We are going to discharge him end of this week, but he is doing so much better, actually some mo re therapy would probably help him and bring him back around. OBJECTIVE: VITAL SIGNS: Reveal blood pressure this morning was 166/77, pulse 73, respirations 18, O2 saturation 98% on 2 liters nasal cannula. T-max is 97.5. GENERAL: This is a well-developed, well-nourished, slightly obese white male in no apparent distress at this time. HEENT: Reveals normocephalic, nontraumatic cranium. Pupils are equally round and reactive. Extraoc ular movements intact. Nose and throat are slightly dry. NECK: Supple, without mass, nodes, or bruits. CHEST: Clear to auscultation. No rales, rhonchi or wheezes are heard. CARDIOVASCULAR: Reveals a regular rate and rhythm without murmurs, gallops, or rubs. Patient does h ave a 2/6 systolic ejection murmur. ABDOMEN: Obese, soft, nontender, without organomegaly. Normal bowel sounds are noted in all 4 quadr ants. : Reveals Penn catheter in place. EXTREMITIES: Reveal no clubbing, cyanosis, or edema. NEUROLOGIC: Patient has been walking a little bit better today and is eating better. He is oriented to person, but not place or time. LABORATORY DATA: Reveals his creatinine is significantly decreased. On admission, his creatinine wa s 4.41 and now it is 2.81. His GFR has gone from 13 to 21. IMPRESSION: 1. Respiratory failure secondary to aspiration, much improved. 2. Dysphagia. Continues to slightly improved. 3. Clostridium difficile presently on day 10 of 14 days of vancomycin q.i.d. 4. Poor appetite. 5. Dementia with confusion. 6. Stage IV chronic renal insufficiency, much improved with creatinine down to 2.8. 7. Patient's family denies dialysis. 8. Hypertension. 9. Systolic and diastolic congestive heart failure, stable and improving. 10. Generalized weakness. 11. Benign prostatic hypertrophy. PLAN: 1. Continue vancomycin 250 q.i.d. for 4 more days. 2. Continue mechanical soft diet with extra sauces and nectar thickened liquids. 3. Monitor the patient's kidney function. 4. Follow the patient for signs and symptoms of congestive heart failure. 5. Continue speech therapy. 6. Continue physical therapy. 7. Continue occupational therapy.
[2017-04-14] MEDS: Donepezil HCl 10 MG TAB PO SCH (20:56)
[2017-04-14] MEDS: Melatonin 3 MG TAB PO SCH (20:56)
[2017-04-14] MEDS: Latanoprost 0.005% Ophth Soln 2.5 ml Bottle L EYE SCH (20:57)
[2017-04-14] MEDS: Amlodipine 5 MG TAB PO SCH (20:57)
[2017-04-15] MEDS: Ipratropium Bromide 2.5 ml Neb NEB SCH ×4 (00:22→17:29)
[2017-04-15 05:16] LABS: #Basophils 0.1 thou/uL (0.0-0.2); #Eosinphils 0.1 thou/uL (0.0-0.7); #Lymphocytes 1.2 thou/uL (1.20-3.40); #Monocytes 0.7 thou/uL (0.11-0.59); #Neutrophils 7.2 thou/uL (1.40-6.50); %Basophils 1.1 % (0.0-1.0); %Eosinophils 1.5 % (0.0-10.0); %Lymphocytes 12.3 % (21.0-51.0); %Monocytes 7.8 % (0.0-10.0); %Neutrophils 77.3 % (42.0-75.0); Hemoglobin 8.3 g/dL (14.0-18.0); Mean Corpuscular HGB CONC 31.5 g/dL (32.0-36.0); Mean Corpuscular Hemoglobin 31.5 pg (27.0-31.0); Mean Corpuscular Volume 99.9 fl (80.0-94.0); Mean Platelet Volume 8.1 fL (7.4-10.4); Platelet Count 197 thou/uL (130-400); RBC Distribution Width 16.6 % (11.5-14.5); Red Blood Cell (RBC) Count 2.65 mill/uL (4.70-6.10); White Blood Cell (WBC) Count 9.4 thou/uL (4.8-10.8)
[2017-04-15 05:32] LABS: Anion Gap 10 mmol/L (10-20); BUN (Urea Nitrogen) 63 mg/dL (8.4-25.7); Calc. Creatinine Clearance 17 mL/min (70-130); Carbon Dioxide 35 mmol/L (23-31); Chloride 103 mmol/L (98-107); Estimated GFR-MDRD 19; Glucose 104 mg/dL (83-110); Potassium 4.9 mmol/L (3.5-5.1); Sodium 143 mmol/L (136-145)
[2017-04-15 06:02] VITALS: BMI 27.8
[2017-04-15] MEDS: FLUOROMETHOLONE R EYE SCH ×2 (09:07→21:51)
[2017-04-15] MEDS: GLUCOSAMINE HCL 1500 MG PO SCH (09:08)
[2017-04-15] MEDS: FLAXSEED OIL 1000 MG PO SCH (09:08)
[2017-04-15] MEDS: Alfuzosin 10 MG TABDR...ER PO SCH (09:09)
[2017-04-15] MEDS: Fish Oil 1,000 MG CAP PO SCH (09:09)
[2017-04-15] MEDS: Atorvastatin Calcium 40 MG TAB PO SCH (09:09)
[2017-04-15] MEDS: Ferrous Sulfate 325 MG TAB PO SCH (09:10)
[2017-04-15] MEDS: Carvedilol 6.25 MG TAB PO SCH (09:10)
[2017-04-15] MEDS: Vancomycin HCl 25 MG/ML Oral PO SCH (09:11)
[2017-04-15] MEDS: Gabapentin 300 MG CAP PO SCH ×2 (09:11→21:48)
[2017-04-15] MEDS: Multivitamin W/ Minerals 1 TAB PO SCH (09:11)
[2017-04-15] MEDS: Metamucil PACK PO SCH (09:12)
--- NOTE | 2017-04-15 13:39 | PRG ---
DATE OF SERVICE: 04/15/2017 HISTORY OF PRESENT ILLNESS: Mr. Rivero is a very pleasant 87-year-old white male that presented t [facility] with shortness of breath secondary to chronic systolic heart failure. The patient is actually doing much better, walking better and began to eat and drink better. His was in the room today and she is encouraging him to eat and drink and exercise and he is doi ng much better. We will continue him on his physical therapy and occupational therapy for another week. VITAL SIGNS: Blood pressure is 113/56, pulse 65-76, respirations 18, O2 sat 91-96% on 2 liters nasal cannula. T-max is 97.8. PHYSICAL EXAMINATION: GENERAL: This is a well-developed, well-nourished, very pleasant white male in no apparent distress at this time. HEENT: Reveals normocephalic, nontraumatic cranium. Pupils equal, round, and reactive. Extraocular movements intact. Nose and throat are slightly dry, but clear. NECK: Supple, without mass, nodes or bruits. LUNGS: Chest is clear to auscultation. No rales, rhonchi or wheezes are heard. No cough is noted. HEART: Reveals a regular rate and rhythm without murmurs or rubs. The patient does have a 2/6 systo lic ejection murmur. ABDOMEN: Obese, soft, nontender, without organomegaly, normal bowel sounds are noted in all 4 quadra nts. No rebound or guarding is noted. : Reveals Penn catheter still in place. We will remove that today. EXTREMITIES: Extremities reveal no clubbing, cyanosis or edema. NEUROLOGIC: The patient has been walking a little bit better and eating better and he is certainly d rinking better. He is oriented to person and place, but not to time. His laboratories are actually fairly good. Sodium 143, potassium 4.9, chloride 103, carbon dioxide 3 8 with a BUN 63, creatinine 3.15, which is good for him. White blood count is 9400 with a hemoglobin 8.2, hematocrit 26.7 and platelet count 197,000. IMPRESSION: 1. Respiratory failure secondary to aspiration, much improved. 2. Dysphagia. Continues to improve with VitalStim therapy next week. 3. Clostridium difficile presently on vancomycin for which the nurse says he is on 17 days. We will stop that. 4. Poor appetite. 5. Dementia with confusion. 6. Stage IV chronic renal insufficiency, much improved. 7. The patient and family both deny wanting to have him do dialysis. 8. Hypertension. 9. Systolic and diastolic congestive heart failure which is stable. 10. Generalized weakness. 11. Benign prostatic hypertrophy. PLAN: 1. Discontinue vancomycin. 2. Discontinue Penn catheter. 3. Continue to encourage patient to drink lots of liquids. 4. Mechanical soft diet with extra sauces and nectar thickened liquids. 5. Monitor the patient's kidney function. 6. Monitor the patient for signs and symptoms of congestive heart failure. 7. Continue speech therapy. 8. Continue physical therapy and occupational therapy.
[2017-04-15] MEDS: Amlodipine 5 MG TAB PO SCH (21:48)
[2017-04-15] MEDS: Melatonin 3 MG TAB PO SCH (21:49)
[2017-04-15] MEDS: Donepezil HCl 10 MG TAB PO SCH (21:49)
[2017-04-15] MEDS: Latanoprost 0.005% Ophth Soln 2.5 ml Bottle L EYE SCH (21:50)
[2017-04-16] MEDS: Ipratropium Bromide 2.5 ml Neb NEB SCH ×5 (01:02→23:48)
[2017-04-16] MEDS: Guaifenesin DM 100-10/5 ML UDCUP PO PRN (02:39)
[2017-04-16] MEDS: FLUOROMETHOLONE R EYE SCH ×2 (08:29→21:22)
[2017-04-16] MEDS: Ferrous Sulfate 325 MG TAB PO SCH (08:30)
[2017-04-16] MEDS: Multivitamin W/ Minerals 1 TAB PO SCH (08:30)
[2017-04-16] MEDS: Carvedilol 6.25 MG TAB PO SCH ×2 (08:30→17:27)
[2017-04-16] MEDS: Atorvastatin Calcium 40 MG TAB PO SCH (08:30)
[2017-04-16] MEDS: Gabapentin 300 MG CAP PO SCH ×2 (08:30→21:20)
[2017-04-16] MEDS: Alfuzosin 10 MG TABDR...ER PO SCH (08:30)
[2017-04-16] MEDS: Fish Oil 1,000 MG CAP PO SCH (08:30)
[2017-04-16] MEDS: FLAXSEED OIL 1000 MG PO SCH (08:31)
[2017-04-16] MEDS: GLUCOSAMINE HCL 1500 MG PO SCH (08:31)
[2017-04-16] MEDS: Metamucil PACK PO SCH (08:57)
--- NOTE | 2017-04-16 14:09 | PRG ---
DATE OF SERVICE: 04/16/2017 HISTORY OF PRESENT ILLNESS: Mr. Rivero is a very pleasant 87-year-old white male that [facility] with shortness of breath secondary to chronic systolic heart failure. He eventuall y was stabilized and transferred to [facility] for physical therapy and occupational therapy. The patient's states he is doing much better. He is drinking better. He is walking better and he has no complaints today. He did walk 70 feet, then 50 feet and then 35 feet. His Penn catheter was removed today. VITAL SIGNS: Vital signs this morning reveal blood pressure 125/60, pulse 64-62, respirations 18, O 2 sat 95% on room air on 2 liters nasal cannula. T-max was 97.3. PHYSICAL EXAMINATION: GENERAL: This is a well-developed, well-nourished, slightly obese white male in no apparent distress at this time. HEENT: Reveals normocephalic, nontraumatic cranium. Pupils equal, round, and reactive. Extraocular movements intact. Nose and throat are slightly dry. NECK: Supple, without mass, nodes or bruits. LUNGS: Chest is clear to auscultation. No rales, rhonchi or wheezes are heard. CARDIOVASCULAR: Reveals a regular rate and rhythm without gallops or rubs. The patient does have a 2/6 systolic ejection murmur. ABDOMEN: Obese, soft, nontender, without organomegaly. Normal bowel sounds are noted in all 4 quadr ants. No rebound or guarding is noted. GENITOURINARY: Reveals Penn catheter still in place which was when I made rounds, but now it has be en removed. EXTREMITIES: Reveal no clubbing, cyanosis or edema. The patient continues to walk a little bit bett . NEUROLOGIC: He is oriented to person, place, but not time. IMPRESSION: 1. Respiratory failure secondary to aspiration, which is much improved. The patient's swallowing is much improved. 2. Dysphagia. Continues to improve. 3. Clostridium difficile presently on vancomycin which was stopped. 4. Poor appetite. 5. Dementia with confusion. 6. Stage IV chronic renal insufficiency, much improved. The patient denies dialysis. 7. Hypertension. 8. Systolic and diastolic congestive heart failure, both stable. 9. Generalized weakness. 10. Benign prostatic hypertrophy. PLAN: 1. Vancomycin was stopped. 2. Penn has been discontinued. 3. Encourage the patient to continue to eat and drink well. 4. Mechanical soft diet with extra sauces and extra nectar thickened liquids. 5. Monitor the patient's kidney function. 6. Monitor the patient for signs and symptoms of congestive heart failure. 7. Continue physical therapy. 8. Continue occupational therapy. 9. Continue speech therapy.
[2017-04-16] MEDS: Amlodipine 5 MG TAB PO SCH (21:19)
[2017-04-16] MEDS: Donepezil HCl 10 MG TAB PO SCH (21:20)
[2017-04-16] MEDS: Melatonin 3 MG TAB PO SCH (21:21)
[2017-04-16] MEDS: Latanoprost 0.005% Ophth Soln 2.5 ml Bottle L EYE SCH (21:21)
[2017-04-16] MEDS ORDERED: MELATONIN PO SCH (22:30)
[2017-04-16] MEDS ORDERED: LEMON BALM PO SCH (22:30)
[2017-04-17 05:29] LABS: #Basophils 0.1 thou/uL (0.0-0.2); #Eosinphils 0.2 thou/uL (0.0-0.7); #Lymphocytes 1.4 thou/uL (1.20-3.40); #Monocytes 0.7 thou/uL (0.11-0.59); %Basophils 1.6 % (0.0-1.0); %Eosinophils 2.4 % (0.0-10.0); %Lymphocytes 19.2 % (21.0-51.0); %Monocytes 9.4 % (0.0-10.0); %Neutrophils 67.4 % (42.0-75.0); Hemoglobin 8.2 g/dL (14.0-18.0); Mean Corpuscular HGB CONC 31.5 g/dL (32.0-36.0); Mean Corpuscular Hemoglobin 31.6 pg (27.0-31.0); Mean Platelet Volume 8.2 fL (7.4-10.4); Platelet Count 184 thou/uL (130-400); RBC Distribution Width 17.4 % (11.5-14.5); White Blood Cell (WBC) Count 7.5 thou/uL (4.8-10.8)
[2017-04-17 05:46] LABS: Anion Gap 13 mmol/L (10-20); BUN (Urea Nitrogen) 65 mg/dL (8.4-25.7); Calc. Creatinine Clearance 17 mL/min (70-130); Calcium 9.1 mg/dL (7.8-10.44); Carbon Dioxide 33 mmol/L (23-31); Chloride 102 mmol/L (98-107); Estimated GFR-MDRD 16; Glucose 96 mg/dL (83-110); Potassium 5.1 mmol/L (3.5-5.1); Sodium 143 mmol/L (136-145)
[2017-04-17] MEDS: Ipratropium Bromide 2.5 ml Neb NEB SCH ×3 (06:07→14:35)
[2017-04-17] MEDS: Guaifenesin DM 100-10/5 ML UDCUP PO PRN (06:13)
--- NOTE | 2017-04-17 07:16 | PRG ---
DATE OF SERVICE: 04/17/2017 DATE OF ADMISSION: 04/06/2017 HISTORY OF PRESENT ILLNESS: Mr. Rivero is a very pleasant 87-year-old white male who presented to [facility] with shortness of breath secondary to congestive heart failure. Eventually stabilized and transferred to [facility] for physical therapy and occupational therapy. The patient als o has all other multiple medical problems. The patient is doing better with his physical therapy. He states he is drinking better, although his creatinine has gone back of 3.5. PHYSICAL EXAMINATION: VITAL SIGNS: This morning reveal blood pressure is 154/73, pulse 65, respirations 20, O2 sat 98% on 2 liters, T-max is 97.6. GENERAL: This is a well-developed, well-nourished, slightly obese white male in no apparent distress at this time. HEENT: Reveals normocephalic, nontraumatic cranium. Pupils equal, round, and reactive. Extraocular muscles are intact. Nose and throat are slightly dry. NECK: Supple without mass, nodes or bruits. CHEST: Clear to auscultation. No rales, rhonchi, wheezes or cough is heard. HEART: Reveals a regular rate and rhythm. The patient does have a 2/6 systolic ejection murmur. ABDOMEN: Slightly obese, soft, nontender, without organomegaly, normal bowel sounds are noted. No r ebound or guarding is noted. GENITOURINARY: Reveals Penn catheter which was removed yesterday is out. The patient is presently sitting on a bedside commode. EXTREMITIES: Reveal no clubbing, cyanosis or edema. NEUROLOGIC: Patient is oriented to person, place, but not time. IMPRESSION: 1. Respiratory failure secondary to aspiration, much improved. 2. Dysphagia, slow improvement. 3. Clostridium difficile presently on vancomycin. Presently, the patient finishes vancomycin which is off. 4. Poor appetite. 5. Poor oral liquid intake. 6. Dementia with confusion. 7. Stage IV chronic renal insufficiency. Family denies dialysis. 8. Hypertension. 9. Systolic and diastolic congestive heart failure, stable. 10. Generalized weakness. 11. Benign prostatic hypertrophy. PLAN: 1. Penn has been stopped. 2. Vancomycin was stopped. 3. Continue to encourage the patient to drink lots of liquids. 4. Mechanical soft diet with extra sauces and nectar thickened liquids. 5. Monitor the patient's kidney function. 6. Monitor the patient for signs and symptoms of congestive heart failure. 7. Continue physical therapy. 8. Continue occupational therapy. 9. Continue speech therapy.
[2017-04-17] MEDS: Metamucil PACK PO SCH (09:00)
[2017-04-17] MEDS: Multivitamin W/ Minerals 1 TAB PO SCH (10:02)
[2017-04-17] MEDS: Gabapentin 300 MG CAP PO SCH ×2 (10:03→20:42)
[2017-04-17] MEDS: Carvedilol 6.25 MG TAB PO SCH ×2 (10:03→18:26)
[2017-04-17] MEDS: Ferrous Sulfate 325 MG TAB PO SCH (10:03)
[2017-04-17] MEDS: Atorvastatin Calcium 40 MG TAB PO SCH (10:04)
[2017-04-17] MEDS: Fish Oil 1,000 MG CAP PO SCH (10:04)
[2017-04-17] MEDS: Alfuzosin 10 MG TABDR...ER PO SCH (10:04)
[2017-04-17] MEDS: FLAXSEED OIL 1000 MG PO SCH (10:05)
[2017-04-17] MEDS: GLUCOSAMINE HCL 1500 MG PO SCH (10:05)
[2017-04-17] MEDS: FLUOROMETHOLONE R EYE SCH ×2 (10:06→20:43)
[2017-04-17] MEDS: Amlodipine 5 MG TAB PO SCH (20:41)
[2017-04-17] MEDS: Donepezil HCl 10 MG TAB PO SCH (20:42)
[2017-04-17] MEDS: Latanoprost 0.005% Ophth Soln 2.5 ml Bottle L EYE SCH (20:42)
[2017-04-17] MEDS ORDERED: MELATONIN PO SCH (21:00)
[2017-04-17] MEDS ORDERED: LEMON BALM PO SCH (21:00)
[2017-04-17] MEDS ORDERED: Ipratropium Bromide 2.5 ml Neb NEB PRN (21:47)
[2017-04-18] MEDS: Guaifenesin DM 100-10/5 ML UDCUP PO PRN (01:41)
[2017-04-18] MEDS: Atorvastatin Calcium 40 MG TAB PO SCH (10:10)
[2017-04-18] MEDS: FLAXSEED OIL 1000 MG PO SCH (10:10)
[2017-04-18] MEDS: Fish Oil 1,000 MG CAP PO SCH (10:10)
[2017-04-18] MEDS: GLUCOSAMINE HCL 1500 MG PO SCH (10:11)
[2017-04-18] MEDS: FLUOROMETHOLONE R EYE SCH ×2 (10:11→21:34)
[2017-04-18] MEDS: Multivitamin W/ Minerals 1 TAB PO SCH (10:11)
[2017-04-18] MEDS: Alfuzosin 10 MG TABDR...ER PO SCH (10:11)
[2017-04-18] MEDS: Ferrous Sulfate 325 MG TAB PO SCH (10:12)
[2017-04-18] MEDS: Gabapentin 300 MG CAP PO SCH ×2 (10:12→21:36)
[2017-04-18] MEDS: Carvedilol 6.25 MG TAB PO SCH ×2 (10:12→18:27)
[2017-04-18] MEDS: Metamucil PACK PO SCH (10:14)
--- NOTE | 2017-04-18 14:12 | PRG ---
DATE OF SERVICE: 04/18/2017 DATE OF ADMISSION: 04/06/2017 HISTORY OF PRESENT ILLNESS: Mr. Rivero is a very pleasant 87-year-old white male who has [employer] insurance, and was admitted to the ER there with shortness of breath and congestive heart marco a lure. The patient was diuresed and stabilized and transferred to [facility]. He has multiple medical problems and basically he is exhausted most of his medications. He seems to be doi ng somewhat better with physical therapy and has difficulty getting off liquids now. We will have la bs ordered for tomorrow, but his creatinine yesterday was gone back up to 3.5. PHYSICAL EXAMINATION: VITAL SIGNS: Today reveal blood pressure 149/79, pulse 59, respirations 19, O2 sat 94% on 2 liters, T-max 97.8. GENERAL: This is a well-developed, well-nourished, very pleasant, slightly obese white male in no ap parent distress at this time. HEENT: Reveals normocephalic, nontraumatic cranium. The pupils are equally round and reactive. Ext raocular movements are intact. Nose and throat are slightly dry, but clear. NECK: Supple, without mass, nodes or bruits. CHEST: Clear to auscultation. No rales, no rhonchi, no wheezes are heard. HEART: Reveals a regular rate and rhythm with a 2/6 systolic ejection murmur. ABDOMEN: Slightly obese, soft, nontender, without organomegaly. Normal bowel sounds are noted. No rebound or guarding is noted. GENITOURINARY: Deferred, but Penn catheter was removed. EXTREMITIES: Reveal no clubbing, cyanosis or edema. NEUROLOGIC: The patient is oriented to person, place, but not time. IMPRESSION: 1. Respiratory failure secondary to aspiration, much improved. 2. Dysphagia, stable. 3. Clostridium difficile. The patient has finished his vancomycin. 4. Poor appetite. 5. Poor oral liquid intake. 6. Dementia with confusion. 7. Stage IV chronic renal insufficiency. The patient and the family do not want dialysis. 8. Hypertension. 9. Systolic and diastolic congestive heart failure, stable. 10. Generalized weakness. 11. Benign prostatic hypertrophy. PLAN: 1. Patient has finished his vancomycin. 2. The patient has had his Penn decreased. He has a bedside commode. 3. Encourage the patient to drink lots of liquids, so his kidney function continues to improve. 4. Mechanical soft diet with extra sauce and nectar thickened liquids. 5. Monitor the patient's kidney function. 6. Monitor the patient for signs and symptoms of congestive heart failure. 7. Continue physical therapy. 8. Continue occupational therapy. 9. Continue speech therapy. The patient is not sleeping well, so we increased his melatonin to 20 mg every evening and added traz odone 50 mg p.r.n. insomnia.
[2017-04-18] MEDS: Latanoprost 0.005% Ophth Soln 2.5 ml Bottle L EYE SCH (21:34)
[2017-04-18] MEDS: MELATONIN PO SCH (21:35)
[2017-04-18] MEDS: LEMON BALM PO SCH (21:35)
[2017-04-18] MEDS: traZODone HCl 50 MG TAB PO PRN (21:36)
[2017-04-18] MEDS: Amlodipine 5 MG TAB PO SCH (21:36)
[2017-04-18] MEDS: Donepezil HCl 10 MG TAB PO SCH (21:36)
[2017-04-19 05:24] LABS: #Basophils 0.1 thou/uL (0.0-0.2); #Eosinphils 0.2 thou/uL (0.0-0.7); #Lymphocytes 1.4 thou/uL (1.20-3.40); #Monocytes 0.7 thou/uL (0.11-0.59); #Neutrophils 4.8 thou/uL (1.40-6.50); %Basophils 1.2 % (0.0-1.0); %Eosinophils 2.8 % (0.0-10.0); %Monocytes 10.3 % (0.0-10.0); %Neutrophils 66.7 % (42.0-75.0); Mean Corpuscular HGB CONC 32.4 g/dL (32.0-36.0); Mean Corpuscular Hemoglobin 31.8 pg (27.0-31.0); Mean Corpuscular Volume 98.1 fl (80.0-94.0); Mean Platelet Volume 8.3 fL (7.4-10.4); Platelet Count 162 thou/uL (130-400); RBC Distribution Width 16.7 % (11.5-14.5); Red Blood Cell (RBC) Count 2.51 mill/uL (4.70-6.10); White Blood Cell (WBC) Count 7.1 thou/uL (4.8-10.8)
[2017-04-19 05:43] LABS: Anion Gap 12 mmol/L (10-20); BUN (Urea Nitrogen) 68 mg/dL (8.4-25.7); Calc. Creatinine Clearance 15 mL/min (70-130); Calcium 9.1 mg/dL (7.8-10.44); Carbon Dioxide 32 mmol/L (23-31); Chloride 102 mmol/L (98-107); Estimated GFR-MDRD 15; Glucose 107 mg/dL (83-110); Potassium 5.4 mmol/L (3.5-5.1); Sodium 141 mmol/L (136-145)
[2017-04-19] MEDS: Ferrous Sulfate 325 MG TAB PO SCH (08:45)
[2017-04-19] MEDS: Atorvastatin Calcium 40 MG TAB PO SCH (08:45)
[2017-04-19] MEDS: Fish Oil 1,000 MG CAP PO SCH (08:45)
[2017-04-19] MEDS: Multivitamin W/ Minerals 1 TAB PO SCH (08:45)
[2017-04-19] MEDS: Metamucil PACK PO SCH (08:46)
[2017-04-19] MEDS: Gabapentin 300 MG CAP PO SCH ×2 (08:46→20:38)
[2017-04-19] MEDS: Alfuzosin 10 MG TABDR...ER PO SCH (08:46)
[2017-04-19] MEDS: Carvedilol 6.25 MG TAB PO SCH ×2 (08:46→17:10)
[2017-04-19] MEDS: GLUCOSAMINE HCL 1500 MG PO SCH (08:47)
[2017-04-19] MEDS: FLUOROMETHOLONE R EYE SCH ×2 (08:47→20:40)
[2017-04-19] MEDS: FLAXSEED OIL 1000 MG PO SCH (08:47)
--- NOTE | 2017-04-19 13:35 | PRG ---
DATE OF SERVICE: 04/19/2017 HISTORY OF PRESENT ILLNESS: Mr. Rivero is a very pleasant 87-year-old white male that was admitte d to [facility] with shortness of breath and congestive heart failure. He was diuresed, stab ilized and transferred to [facility] for continued physical therapy and occupational therapy. The patient has not been drinking well enough and his creatinine has gone up. We had a significant d iscussion with his about he and her making sure that he drinks 40-80 ounces of liquids a day. T hey say they will try that, so therefore, we will start an IV on him with D5W and somewhat hydrate hi m for the next day or two get his BUN and creatinine back down and give him a jump start. He has no complaints and states he will definitely drink more liquids. VITAL SIGNS: Blood pressure this morning was 107/57, pulse 60, respirations 17, O2 sat 95% on 2 lite rs, T-max 97.1. PHYSICAL EXAMINATION: GENERAL: This is a well-developed, well-nourished, slightly obese white male in no apparent distress at this time. HEENT: Reveals normocephalic, nontraumatic cranium. Pupils equally round and reactive. Extraocular movements intact. Nose and throat are slightly dry. NECK: Supple, without mass, nodes or bruits. CHEST: Clear to auscultation. No rales, rhonchi, wheezes or cough is heard. CARDIOVASCULAR: Reveals a regular rate and rhythm without murmurs, gallops or rubs. ABDOMEN: Soft, nontender, without organomegaly, normal bowel sounds are noted. No rebound or guardi ng is noted. : Deferred. Penn catheter has been removed. EXTREMITIES: Reveal no clubbing, cyanosis or edema. NEUROLOGIC: The patient oriented to person, place and time. He is able to do much better walking an d is much more purposeful at this time. IMPRESSION: 1. Respiratory failure secondary to aspiration, much improved. 2. Dysphasia, stable. 3. Clostridium difficile, resolved. 4. Poor appetite. 5. Poor oral liquid intake. 6. Dementia with confusion. 7. Stage IV chronic renal insufficiency. 8. Hypertension. 9. Systolic and diastolic congestive heart failure, stable. 10. Generalized weakness. 11. Benign prostatic hypertrophy. PLAN: 1. The patient has finished his vancomycin. 2. The patient is actually doing well without his Penn catheter. He now has a bedside commode. 3. Encourage the patient to increase his oral intake, so his kidney function continues to improve. 4. Mechanical soft diet with extra sauce and nectar thickened liquids. 5. Monitor the patient's kidney function. 6. Monitor the patient for signs and symptoms of congestive heart failure. 7. Continue physical therapy. 8. Continue occupational therapy. 9. Continue speech therapy.
[2017-04-19] MEDS ORDERED: Dextrose 5% in Water 1,000 ML IV SCH (15:00)
[2017-04-19 19:59] VITALS: BP 128/64
[2017-04-19] MEDS: MELATONIN PO SCH (20:38)
[2017-04-19] MEDS: LEMON BALM PO SCH (20:38)
[2017-04-19] MEDS: Guaifenesin DM 100-10/5 ML UDCUP PO PRN (20:38)
[2017-04-19] MEDS: traZODone HCl 50 MG TAB PO PRN (20:39)
[2017-04-19] MEDS: Amlodipine 5 MG TAB PO SCH (20:39)
[2017-04-19] MEDS: Donepezil HCl 10 MG TAB PO SCH (20:39)
[2017-04-19] MEDS: Latanoprost 0.005% Ophth Soln 2.5 ml Bottle L EYE SCH (20:41)
[2017-04-19 23:05] VITALS: TEMP 98.1
--- NOTE | 2017-04-21 04:26 | DS ---
DATE OF ADMISSION: 04/06/2017 DATE OF : 04/20/2017 Mr. Rivero was a very pleasant 87-year-old white male that was [facility] congestive heart failure, respiratory failure, C. diff, stage IV chronic renal insufficiency, diastolic and systolic congestive heart failure, BPH and generalized weakness. The p atient was eventually stabilized and transferred to [facility] where he was doing jennyfer y well with his physical therapy and occupational therapy. The patient went to bed at his usual time and was sleeping well. At 0235 hours the patient's called for assistance in the room because he was unable to wake the patient because he was nonresponsive. The patient was found to be without radial pulse, without pupi ls responding to light, without any breath sounds. He had no neurological signs of life. The patien t had been a DNR status and he was not resuscitated. He was pronounced by the RN at 0240 hours. I was notified thereafter. FINAL DIAGNOSES: 1. Acute myocardial infarction. 2. Systolic and diastolic congestive heart failure. 3. Coronary artery disease. 4. Stage IV chronic renal insufficiency. 5. Hypertension. 6. History of recent Clostridium difficile. 7. Dementia with confusion. packet was done and the patient's body was released to [facility] and direct ly to [facility].
== END 2017-04-20 03:41 | disposition expired | DRG 947 ==
LOC: NAV ACUTE 18:11
PROVIDERS: ADMIT Family Medicine; ATTEND Family Medicine
DX: R53.1 Weakness (principal); I21.9 Acute myocardial infarction, unspecified; J96.11 Chronic respiratory failure with hypoxia; A04.72 Enterocolitis due to Clostridium difficile, not specified as recurrent; I13.0 Hypertensive heart and chronic kidney disease with heart failure and stage 1 through stage 4 chronic kidney disease, or unspecified chronic kidney disease; E87.0 Hyperosmolality and hypernatremia; N18.4 Chronic kidney disease, stage 4 (severe); D69.6 Thrombocytopenia, unspecified; I50.42 Chronic combined systolic (congestive) and diastolic (congestive) heart failure; I08.3 Combined rheumatic disorders of mitral, aortic and tricuspid valves; T17.920A Food in respiratory tract, part unspecified causing asphyxiation, initial encounter; Z99.81 Dependence on supplemental oxygen; J44.9 Chronic obstructive pulmonary disease, unspecified; I25.10 Atherosclerotic heart disease of native coronary artery without angina pectoris; N40.0 Benign prostatic hyperplasia without lower urinary tract symptoms; D50.0 Iron deficiency anemia secondary to blood loss (chronic); G25.81 Restless legs syndrome; K21.9 Gastro-esophageal reflux disease without esophagitis; E78.5 Hyperlipidemia, unspecified; R13.10 Dysphagia, unspecified; M10.9 Gout, unspecified; G30.9 Alzheimer's disease, unspecified; F02.80 Dementia in other diseases classified elsewhere, unspecified severity, without behavioral disturbance, psychotic disturbance, mood disturbance, and anxiety; K57.90 Diverticulosis of intestine, part unspecified, without perforation or abscess without bleeding; N52.9 Male erectile dysfunction, unspecified; M19.90 Unspecified osteoarthritis, unspecified site; Z87.891 Personal history of nicotine dependence; E55.9 Vitamin D deficiency, unspecified; I44.7 Left bundle-branch block, unspecified; J30.9 Allergic rhinitis, unspecified; Z96.641 Presence of right artificial hip joint; Z96.651 Presence of right artificial knee joint; Z96.611 Presence of right artificial shoulder joint; E86.0 Dehydration; Z66 Do not resuscitate
CPT/HCPCS: 36415; 80048; 80053; 81001; 83880; 85025; 87086; A4216; G8978-GP-CK; G8979-GP-CJ; G8996-GN-CK; G8997-GN-CJ; J7070; J7644